=== PATIENT | male | born 1985 | race Caucasian/White ===

== ENCOUNTER 2016-05-08 15:44 | Inpatient (IN) ==
--- NOTE | 2016-05-08 16:01 | Emergency Department Note ---
Disposition Clinical Impression: Suicidal ideation Depression Qualifiers: Depression Type: unspecified Qualified Code(s): F32.9 - Major depressive disorder, single episode, unspecified Disposition: Admitted As Inpatient Condition: Fair General Adult HPI - General Chief complaint: ED Psychiatric Symptoms Stated complaint: SI Time Seen by Provider: 05/08/16 15:56 Source: patient Limitations: no limitations Nursing Notes Reviewed: Yes Vital Signs Reviewed: Yes - History of Present Illness HPI Narrative: 31-year-old male with long-standing history of depression and suicidal ideation. He is currently being treated but has had approximately 1-2 weeks of worsening depression. He states that he does want to kill himself right now and he does have a plan of taking pills. He denies a current suicide attempt. He denies taking excess of his medications. He also denies having any new symptoms they can think of aside from depression. He denies fever, headache, abdominal pain, nausea, vomiting, difficulty urinating. Denies any new rashes. He was just seen one or 2 days ago at [facility] but was discharged. His significant other who is in the room with him said that he was not honest with them but he now would like help Pain Scale: 0 Consistency: constant Improves with: nothing Worsens with: nothing Associated symptoms: Reports: denies other symptoms Treatments Prior to Arrival: none - Related Data Allergies Allergy/AdvReac Type Severity Reaction Status Date / Time Sulfa (Sulfonamide AdvReac Rash Verified 05/08/16 15:46 Antibiotics) All systems ED: reviewed and negative except as stated. Constitutional: Denies: fever Eyes: Denies: vision change ENT ED: Denies: throat pain Cardiovascular: Denies: chest pain Respiratory: Denies: cough Gastrointestinal: Denies: abdominal pain Genitourinary: Denies: dysuria Musculoskeletal: Denies: back pain Integumentary: Denies: rash Neurological: Denies: headache Endocrine: Reports: fatigue Past Medical History - Past Medical History Medical history: Reports: asthma Psychiatric history: Reports: anxiety, depression, prior suicide attempt, previous psychiatric hospitalization - Social History Smoking Status: Current every day smoker Smokeless Tobacco Status: No Alcohol use: Reports: recent Drug use: Reports: none Physical Exam - General Limitations: no limitations General appearance: alert - Head Head exam: atraumatic - Eye Eye exam: Present: normal appearance, PERRL, EOMI - ENT ENT exam: normal exam, normal oropharynx - Neck Neck exam: Present: normal inspection - Chest Chest inspection: Present: normal inspection - Respiratory Respiratory exam: Present: normal lung sounds bilaterally. Absent: respiratory distress - Cardiovascular Cardiovascular exam: Present: regular rate, normal rhythm - Abdominal Exam Abdominal exam: Present: soft, Non-Tender - Extremities Exam Extremities exam: Present: normal inspection - Neurological Exam Neurological exam: Present: alert, oriented X3 - Psychiatric Psychiatric exam: Present: depressed, suicidal ideation - Skin Skin exam: Present: warm, dry Course Course Narrative: We will do medical screening labs with psychiatric consultation. - Reevaluation(s) Reevaluation #1: WBC count is mildly elevated. No sign of infection on physical exam. Medically clear for 1A Reevaluation #2: Accepted by 1A for admission Vital Signs Temperature 98.4 F 05/08/16 15:47 Pulse Rate 123 05/08/16 15:47 Respiratory Rate 16 05/08/16 15:47 Blood Pressure 151/111 05/08/16 15:47 O2 Sat by Pulse Oximetry 96 05/08/16 15:47 Temperature 98.4 F 05/08/16 15:47 Pulse Rate 123 05/08/16 15:47 Respiratory Rate 16 05/08/16 15:47 Blood Pressure 151/111 05/08/16 15:47 O2 Sat by Pulse Oximetry 96 05/08/16 15:47 Oxygen Delivery Oxygen Delivery Room Air Medical Decision Making - Medical Records Medical records reviewed: Yes I reviewed the patient's medical records. - Lab Data Lab results reviewed: Yes I reviewed the patient's lab results. Result diagrams: 05/08/16 16:20 05/08/16 16:20 Lab Results 05/08/16 05/08/16 05/08/16 Range/Units 16:20 16:20 16:30 WBC 11.5 H (4.3-11.1) K/mcL RBC 5.42 (4.19-5.50) M/mcL Hgb 17.0 H (12.9-16.9) g/dL Hct 47.9 (37.5-50.1) % MCV 88.4 (83.0-100.0) fL MCH 31.4 (28.0-33.3) pg MCHC 35.5 (31.6-35.5) g/dL RDW 12.2 (11.5-14.5) % Plt Count 267 (140-400) K/mcL MPV 8.4 L (9.4-12.4) fL Immature Gran % 0.3 (0-4) % Seg Neutrophils % 79.4 % Lymphocytes % 13.3 % Monocytes % 6.2 % Eosinophils % 0.4 % Basophils % 0.4 % Neutrophils # 9.1 H (1.6-8.9) K/mcL Lymphocytes # 1.5 (0.6-4.6) K/mcL Monocytes # 0.7 (0.0-1.3) K/mcL Eosinophils # 0.1 (0.0-0.6) K/mcL Basophils # 0.1 (0.0-0.2) K/mcL Sodium 140 (136-145) mEq/L Potassium 4.1 (3.5-4.5) mEq/L Chloride 103 (98-109) mEq/L Carbon Dioxide 24 (19-29) mEq/L BUN 9 (8-26) mg/dL Creatinine 0.81 (0.72-1.25) mg/dL Est GFR ( Amer) > 60 (> 60) Est GFR (Non-Af Amer) > 60 (> 60) BUN/Creatinine Ratio 11 (6-26) Glucose 103 H (70-99) mg/dL Calculated Osmolality 289 (280-300) Calcium 10.0 (8.6-10.8) mg/dL TSH 1.093 (0.350-4.840) mcIU/mL Urine Color Yellow (Yellow) Urine Clarity Clear (Clear) Urine pH 7.0 (5.0-8.0) pH Units Ur Specific [place] 1.009 L (1.010-1.025) Urine Protein Negative (Neg-Trace) mg/dL Urine Glucose (UA) Normal (Normal) mg/dL Urine Ketones Negative (Negative) mg/dL Urine Blood Negative (Negative) Urine Nitrite Negative (Negative) Urine Bilirubin Negative (Negative) Urine Urobilinogen Normal (Normal) mg/dL Ur Leukocyte Esterase Negative (Negative) Salicylates < 5.0 L (15-30) mg/dL Urine Opiates Screen (Ayevgs=697) ng/mL Acetaminophen < 1.0 L (10-30) mcg/mL Ur Barbiturates Screen (Ucmmyo=985) ng/mL Ur Phencyclidine Scrn (Cutoff=25) ng/mL Ur Amphetamines Screen (Belhsj=6508) ng/mL U Benzodiazepines Scrn (Dxjump=687) ng/mL Urine Cocaine Screen (Cutoff= 300) ng/mL U Marijuana (THC) Screen (Cutoff = 50) ng/mL Ethyl Alcohol < 10 (0-10) mg/dL 05/08/16 Range/Units 16:30 WBC (4.3-11.1) K/mcL RBC (4.19-5.50) M/mcL Hgb (12.9-16.9) g/dL Hct (37.5-50.1) % MCV (83.0-100.0) fL MCH (28.0-33.3) pg MCHC (31.6-35.5) g/dL RDW (11.5-14.5) % Plt Count (140-400) K/mcL MPV (9.4-12.4) fL Immature Gran % (0-4) % Seg Neutrophils % % Lymphocytes % % Monocytes % % Eosinophils % % Basophils % % Neutrophils # (1.6-8.9) K/mcL Lymphocytes # (0.6-4.6) K/mcL Monocytes # (0.0-1.3) K/mcL Eosinophils # (0.0-0.6) K/mcL Basophils # (0.0-0.2) K/mcL Sodium (136-145) mEq/L Potassium (3.5-4.5) mEq/L Chloride (98-109) mEq/L Carbon Dioxide (19-29) mEq/L BUN (8-26) mg/dL Creatinine (0.72-1.25) mg/dL Est GFR ( Amer) (> 60) Est GFR (Non-Af Amer) (> 60) BUN/Creatinine Ratio (6-26) Glucose (70-99) mg/dL Calculated Osmolality (280-300) Calcium (8.6-10.8) mg/dL TSH (0.350-4.840) mcIU/mL Urine Color (Yellow) Urine Clarity (Clear) Urine pH (5.0-8.0) pH Units Ur Specific [place] (1.010-1.025) Urine Protein (Neg-Trace) mg/dL Urine Glucose (UA) (Normal) mg/dL Urine Ketones (Negative) mg/dL Urine Blood (Negative) Urine Nitrite (Negative) Urine Bilirubin (Negative) Urine Urobilinogen (Normal) mg/dL Ur Leukocyte Esterase (Negative) Salicylates (15-30) mg/dL Urine Opiates Screen Negative (Utdcdm=661) ng/mL Acetaminophen (10-30) mcg/mL Ur Barbiturates Screen Negative (Durdik=890) ng/mL Ur Phencyclidine Scrn Negative (Cutoff=25) ng/mL Ur Amphetamines Screen Negative (Tjrmwl=2429) ng/mL U Benzodiazepines Scrn Negative (Duyhqh=962) ng/mL Urine Cocaine Screen Negative (Cutoff= 300) ng/mL U Marijuana (THC) Screen Negative (Cutoff = 50) ng/mL Ethyl Alcohol (0-10) mg/dL
[2016-05-08 16:30] LABS: Basophils # 0.1 K/mcL (0.0-0.2); Basophils % 0.4 %; Eosinophils # 0.1 K/mcL (0.0-0.6); Eosinophils % 0.4 %; Hematocrit 47.9 % (37.5-50.1); Immature Granulocytes % 0.3 % (0-4); Lymphocytes # 1.5 K/mcL (0.6-4.6); Lymphocytes % 13.3 %; Mean Corpuscular HGB Conc 35.5 g/dL (31.6-35.5); Mean Corpuscular Hemoglobin 31.4 pg (28.0-33.3); Mean Corpuscular Volume 88.4 fL (83.0-100.0); Mean Platelet Volume 8.4 fL (9.4-12.4); Monocytes # 0.7 K/mcL (0.0-1.3); Monocytes % 6.2 %; Neutrophils # 9.1 K/mcL (1.6-8.9); Platelet Count 267 K/mcL (140-400); Red Blood Count 5.42 M/mcL (4.19-5.50); Red Cell Distribution Width 12.2 % (11.5-14.5); Segmented Neutrophils % 79.4 %
[2016-05-08 16:45] LABS: Acetaminophen < 1.0 mcg/mL (10-30); BUN/Creatinine Ratio 11 (6-26); Blood Urea Nitrogen 9 mg/dL (8-26); Carbon Dioxide 24 mEq/L (19-29); Chloride 103 mEq/L (98-109); Ethanol < 10 mg/dL (0-10); Glucose 103 mg/dL (70-99); Osmolality,Calculated 289 (280-300); Potassium 4.1 mEq/L (3.5-4.5); Salicylate < 5.0 mg/dL (15-30); Sodium 140 mEq/L (136-145); eGFR For African Americans > 60 (> 60); eGFR For Non-African Americans > 60 (> 60)
[2016-05-08 16:47] LABS: Bilirubin,Urine Negative (Negative); Blood,Urine Negative (Negative); Clarity,Urine Clear (Clear); Color,Urine Yellow (Yellow); Glucose,Urine (UA) Normal (Normal); Ketones,Urine Negative (Negative); Leukocyte Esterase,Urine Negative (Negative); Nitrite,Urine Negative (Negative); Protein,Urine Negative (Neg-Trace); Specific Gravity,Urine 1.009 (1.010-1.025); Urobilinogen,Urine Normal (Normal)
[2016-05-08 16:51] LABS: Amphetamine Screen,Urine Negative ng/mL (Cutoff=1000); Barbiturate Screen,Urine Negative ng/mL (Cutoff=200); Benzodiazepines Screen,Urine Negative ng/mL (Cutoff=200); Cannabinoid Screen,Urine Negative ng/mL (Cutoff = 50); Cocaine Screen,Urine Negative ng/mL (Cutoff= 300); Opiate Screen,Urine Negative ng/mL (Cutoff=300); Phencyclidine Screen,Urine Negative ng/mL (Cutoff=25)
[2016-05-08 17:05] LABS: Thyroid Stimulating Hormone 1.093 mcIU/mL (0.350-4.840)
--- NOTE | 2016-05-08 17:14 | Emergency Department Note ---
Disposition Clinical Impression: Suicidal ideation Depression Qualifiers: Depression Type: unspecified Qualified Code(s): F32.9 - Major depressive disorder, single episode, unspecified Disposition: Admitted As Inpatient Condition: Fair General Adult HPI - General Chief complaint: ED Psychiatric Symptoms Stated complaint: SI Time Seen by Provider: 05/08/16 15:56 Source: patient Limitations: no limitations - History of Present Illness Pain Scale: 0 Improves with: nothing Worsens with: nothing Associated symptoms: Reports: denies other symptoms Treatments Prior to Arrival: none - Related Data Allergies Allergy/AdvReac Type Severity Reaction Status Date / Time Sulfa (Sulfonamide AdvReac Rash Verified 05/08/16 15:46 Antibiotics) Constitutional: Denies: fever Eyes: Denies: vision change ENT ED: Denies: throat pain Cardiovascular: Denies: chest pain Respiratory: Denies: cough Gastrointestinal: Denies: abdominal pain Genitourinary: Denies: dysuria Musculoskeletal: Denies: back pain Integumentary: Denies: rash Neurological: Denies: headache Endocrine: Reports: fatigue Past Medical History - Past Medical History Medical history: Reports: asthma Psychiatric history: Reports: anxiety, depression, prior suicide attempt, previous psychiatric hospitalization - Social History Smoking Status: Current every day smoker Smokeless Tobacco Status: No Alcohol use: Reports: recent Drug use: Reports: none Physical Exam - General Limitations: no limitations General appearance: alert Course - Reevaluation(s) Reevaluation #1: I saw the patient with the resident, Dr. Rogel. Patient presents with depression and suicidal ideations. He denied any medical complaints. Medical screening examination and labs are negative. The patient is medically cleared. We have already called psychiatry and they will be coming to evaluate the patient. He has been calm and cooperative. Time: 17:13 Vital Signs Temperature 98.4 F 05/08/16 15:47 Pulse Rate 123 05/08/16 15:47 Respiratory Rate 16 05/08/16 15:47 Blood Pressure 151/111 05/08/16 15:47 O2 Sat by Pulse Oximetry 96 05/08/16 15:47 Temperature 97.5 F L 05/08/16 15:56 Pulse Rate 81 05/08/16 15:56 Respiratory Rate 0 05/08/16 18:35 Blood Pressure 0/0 05/08/16 18:35 O2 Sat by Pulse Oximetry 96 05/08/16 15:47 Oxygen Delivery Oxygen Delivery Room Air Medical Decision Making - Lab Data Result diagrams: 05/08/16 16:20 05/08/16 16:20 Lab Results 05/08/16 05/08/16 05/08/16 Range/Units 16:20 16:20 16:30 WBC 11.5 H (4.3-11.1) K/mcL RBC 5.42 (4.19-5.50) M/mcL Hgb 17.0 H (12.9-16.9) g/dL Hct 47.9 (37.5-50.1) % MCV 88.4 (83.0-100.0) fL MCH 31.4 (28.0-33.3) pg MCHC 35.5 (31.6-35.5) g/dL RDW 12.2 (11.5-14.5) % Plt Count 267 (140-400) K/mcL MPV 8.4 L (9.4-12.4) fL Immature Gran % 0.3 (0-4) % Seg Neutrophils % 79.4 % Lymphocytes % 13.3 % Monocytes % 6.2 % Eosinophils % 0.4 % Basophils % 0.4 % Neutrophils # 9.1 H (1.6-8.9) K/mcL Lymphocytes # 1.5 (0.6-4.6) K/mcL Monocytes # 0.7 (0.0-1.3) K/mcL Eosinophils # 0.1 (0.0-0.6) K/mcL Basophils # 0.1 (0.0-0.2) K/mcL Sodium 140 (136-145) mEq/L Potassium 4.1 (3.5-4.5) mEq/L Chloride 103 (98-109) mEq/L Carbon Dioxide 24 (19-29) mEq/L BUN 9 (8-26) mg/dL Creatinine 0.81 (0.72-1.25) mg/dL Est GFR ( Amer) > 60 (> 60) Est GFR (Non-Af Amer) > 60 (> 60) BUN/Creatinine Ratio 11 (6-26) Glucose 103 H (70-99) mg/dL Calculated Osmolality 289 (280-300) Calcium 10.0 (8.6-10.8) mg/dL TSH 1.093 (0.350-4.840) mcIU/mL Urine Color Yellow (Yellow) Urine Clarity Clear (Clear) Urine pH 7.0 (5.0-8.0) pH Units Ur Specific [place] 1.009 L (1.010-1.025) Urine Protein Negative (Neg-Trace) mg/dL Urine Glucose (UA) Normal (Normal) mg/dL Urine Ketones Negative (Negative) mg/dL Urine Blood Negative (Negative) Urine Nitrite Negative (Negative) Urine Bilirubin Negative (Negative) Urine Urobilinogen Normal (Normal) mg/dL Ur Leukocyte Esterase Negative (Negative) Salicylates < 5.0 L (15-30) mg/dL Urine Opiates Screen (Qnejgn=954) ng/mL Acetaminophen < 1.0 L (10-30) mcg/mL Ur Barbiturates Screen (Txoefp=539) ng/mL Ur Phencyclidine Scrn (Cutoff=25) ng/mL Ur Amphetamines Screen (Fkmvcm=6867) ng/mL U Benzodiazepines Scrn (Izylsg=867) ng/mL Urine Cocaine Screen (Cutoff= 300) ng/mL U Marijuana (THC) Screen (Cutoff = 50) ng/mL Ethyl Alcohol < 10 (0-10) mg/dL 05/08/16 Range/Units 16:30 WBC (4.3-11.1) K/mcL RBC (4.19-5.50) M/mcL Hgb (12.9-16.9) g/dL Hct (37.5-50.1) % MCV (83.0-100.0) fL MCH (28.0-33.3) pg MCHC (31.6-35.5) g/dL RDW (11.5-14.5) % Plt Count (140-400) K/mcL MPV (9.4-12.4) fL Immature Gran % (0-4) % Seg Neutrophils % % Lymphocytes % % Monocytes % % Eosinophils % % Basophils % % Neutrophils # (1.6-8.9) K/mcL Lymphocytes # (0.6-4.6) K/mcL Monocytes # (0.0-1.3) K/mcL Eosinophils # (0.0-0.6) K/mcL Basophils # (0.0-0.2) K/mcL Sodium (136-145) mEq/L Potassium (3.5-4.5) mEq/L Chloride (98-109) mEq/L Carbon Dioxide (19-29) mEq/L BUN (8-26) mg/dL Creatinine (0.72-1.25) mg/dL Est GFR ( Amer) (> 60) Est GFR (Non-Af Amer) (> 60) BUN/Creatinine Ratio (6-26) Glucose (70-99) mg/dL Calculated Osmolality (280-300) Calcium (8.6-10.8) mg/dL TSH (0.350-4.840) mcIU/mL Urine Color (Yellow) Urine Clarity (Clear) Urine pH (5.0-8.0) pH Units Ur Specific [place] (1.010-1.025) Urine Protein (Neg-Trace) mg/dL Urine Glucose (UA) (Normal) mg/dL Urine Ketones (Negative) mg/dL Urine Blood (Negative) Urine Nitrite (Negative) Urine Bilirubin (Negative) Urine Urobilinogen (Normal) mg/dL Ur Leukocyte Esterase (Negative) Salicylates (15-30) mg/dL Urine Opiates Screen Negative (Qhhdtd=601) ng/mL Acetaminophen (10-30) mcg/mL Ur Barbiturates Screen Negative (Nunkqt=001) ng/mL Ur Phencyclidine Scrn Negative (Cutoff=25) ng/mL Ur Amphetamines Screen Negative (Iorxqk=6886) ng/mL U Benzodiazepines Scrn Negative (Rilgzu=518) ng/mL Urine Cocaine Screen Negative (Cutoff= 300) ng/mL U Marijuana (THC) Screen Negative (Cutoff = 50) ng/mL Ethyl Alcohol (0-10) mg/dL Attestation Statement - Attestation Attestation: I, Dr. Fitzpatrick, examined this patient [id number] and my medical decision- making was reviewed with Dr. Rogel, Resident Physician. I agree with the documented findings, disposition and treatment plan as described except to the extent set forth below. Please see my progress notes for details.
[2016-05-08] MEDS ORDERED: Haloperidol Lactate 5 MG/ML VIAL IM PRN (18:19)
[2016-05-08] MEDS ORDERED: *HR* LORazepam 1 MG TABLET PO PRN (18:19)
[2016-05-08] MEDS ORDERED: MOM Conc 10 ML UD.LIQ PO PRN (18:19)
[2016-05-08] MEDS ORDERED: Mag Hydrox/Al Hydrox/Simeth 30 ML UDC PO PRN (18:19)
[2016-05-08] MEDS ORDERED: *HR* LORazepam 2 MG/ML VIAL IM PRN (18:19)
[2016-05-08] MEDS: Nicotine 21 MG PATCH.TD24 TD SCH (18:53)
[2016-05-08] MEDS: traZODone 50 MG TABLET PO PRN (20:39)
[2016-05-09] MEDS: Nicotine 21 MG PATCH.TD24 TD SCH (08:06)
[2016-05-09] MEDS: Acetaminophen 325 MG TABLET PO PRN (08:55)
--- NOTE | 2016-05-09 15:42 | Psychiatry History & Physical ---
Date of Encounter: 05/09/16 Time of Encounter: 14:30 History of Present Illness Patient Stated Chief Complaint: "I'm pretty rough." Medicare Admission Attestation: For traditional Medicare patients the provided hospital inpatient services are reasonable and necessary and in the case of services not specified as inpatient -only under 42 CFR 419.22 (n), that they are appropriately provided as inpatient services in accordance 42 CFR 412.3. For Critical Access Hospital the patient may reasonably be expected to be discharged or transferred to a hospital within 96 hours after admission to the Critical Access Hospital. Admitted From: Emergency Dept Plans for Post Hospital Care: Home History of Present Illness: Mr. Reyes is a 31 year old male was admitted to after having thoughts of suicide with a plan. He tells me that things been "pretty rough" the last couple weeks. He states that he started feeling more depressed several weeks ago and it progressed to having feelings and suicidal thoughts. His plan was to "overdose on something". He denies any precipitating event that caused the depression to get worse. He states overall, he has always been fairly stable on his antidepressant medications. He has been sober off of alcohol for about 9 months. He states this past Sunday, in his depression, he went to [place] and started drinking again with friends there at a bar and blacked out. He was taken to the ER, allowed to sober up he was discharged. The next night he started filling suicidal again. He endorses feeling lonely and sad, helpless and hopeless, decreased appetite having lost 5 pounds in the last month, having no desire to do anything and decreased libido. He tells me that he slept well on the unit last night feeling safe. He denies ever having periods of high energy or doing anything impulsive. He denies auditory or visual hallucinations. He has been consistent taking Zoloft which he receives from [facility] in [place]. He states the dose is not been increased or changed for long time secondary to him being stable. He denies any other substance abuse at this time. He states he get this past September and things are good in his marriage. His is very supportive. 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 Past Med Surg Social Fam HX - Past Medical History Medical history: asthma - Past Psychiatric History Psychiatric history: Reports: anxiety, depression, previous psychiatric hospitalization Past psychiatric history details: He sees a psychiatrist at [facility] in [place]. The same psychiatrist his mother's goes to. Family psychiatric history: Yes (Mother and sister; depression and anxiety) Family History of Suicide: None - Social History Smoking Status: Current every day smoker Packs per day: 1 x 10 years Smokeless Tobacco Status: No Alcohol use: heavy (in the past. Sober for 9 months. Goes to ), recent Drug use: none Occupational status: employed Current living situation: Home - Independent Activity Level: Independent ambulation Recent Out of Country Travel Within the Last 8 Weeks: No Exposure or Possible Exposure to Illness During Travel: No Medications & Allergies Allergies Sulfa (Sulfonamide Antibiotics) Adverse Reaction (Verified 05/08/16 15:46) Rash Review of Systems Psychiatric: Reports: depression, anxiety, abnormal sleep pattern, suicidal ideation, change in appetite, anhedonia, change in libido, difficulty concentrating, hopelessness, irritability Mental Status Exam Patient orientation: Yes Person, Yes Time, Yes Place, Yes Circumstance Level of alertness: Alert, Follows commands Patient appearance: Well Groomed Behavior: cooperative Psychomotor activity: Normal Eye contact: Maintains Eye Contact Mood description: Depressed Affect description: flat, dysphoric Speech pattern: Normal rate, Normal rhythm, Normal tone, Appropriate Speech volume: Normal Thought process: Logical, Linear Thought content: Yes Suicidal ideation Attention span: Capable of Focused Attention Memory description: Grossly Intact Patient reliability: Reliable Historian Intelligence estimate: Average Judgment: Fair Insight: Partial Results - Vital Signs Vital signs: Temp Pulse Resp BP Pulse Ox 97.5 F L 81 0 0/0 96 05/08/16 15:56 05/08/16 15:56 05/08/16 18:35 05/08/16 18:35 05/08/16 15:47 - Labs Labs: Laboratory Last Values WBC 11.5 K/mcL (4.3-11.1) H 05/08/16 16:20 RBC 5.42 M/mcL (4.19-5.50) 05/08/16 16:20 Hgb 17.0 g/dL (12.9-16.9) H 05/08/16 16:20 Hct 47.9 % (37.5-50.1) 05/08/16 16:20 MCV 88.4 fL (83.0-100.0) 05/08/16 16:20 MCH 31.4 pg (28.0-33.3) 05/08/16 16:20 MCHC 35.5 g/dL (31.6-35.5) 05/08/16 16:20 RDW 12.2 % (11.5-14.5) 05/08/16 16:20 Plt Count 267 K/mcL (140-400) 05/08/16 16:20 MPV 8.4 fL (9.4-12.4) L 05/08/16 16:20 Immature Gran % 0.3 % (0-4) 05/08/16 16:20 Seg Neutrophils % 79.4 % 05/08/16 16:20 Lymphocytes % 13.3 % 05/08/16 16:20 Monocytes % 6.2 % 05/08/16 16:20 Eosinophils % 0.4 % 05/08/16 16:20 Basophils % 0.4 % 05/08/16 16:20 Neutrophils # 9.1 K/mcL (1.6-8.9) H 05/08/16 16:20 Lymphocytes # 1.5 K/mcL (0.6-4.6) 05/08/16 16:20 Monocytes # 0.7 K/mcL (0.0-1.3) 05/08/16 16:20 Eosinophils # 0.1 K/mcL (0.0-0.6) 05/08/16 16:20 Basophils # 0.1 K/mcL (0.0-0.2) 05/08/16 16:20 Sodium 140 mEq/L (136-145) 05/08/16 16:20 Potassium 4.1 mEq/L (3.5-4.5) 05/08/16 16:20 Chloride 103 mEq/L (98-109) 05/08/16 16:20 Carbon Dioxide 24 mEq/L (19-29) 05/08/16 16:20 BUN 9 mg/dL (8-26) 05/08/16 16:20 Creatinine 0.81 mg/dL (0.72-1.25) 05/08/16 16:20 Est GFR ( Amer) > 60 (> 60) 05/08/16 16:20 Est GFR (Non-Af Amer) > 60 (> 60) 05/08/16 16:20 BUN/Creatinine Ratio 11 (6-26) 05/08/16 16:20 Glucose 103 mg/dL (70-99) H 05/08/16 16:20 Calculated Osmolality 289 (280-300) 05/08/16 16:20 Calcium 10.0 mg/dL (8.6-10.8) 05/08/16 16:20 TSH 1.093 mcIU/mL (0.350-4.840) 05/08/16 16:20 Urine Color Yellow (Yellow) 05/08/16 16:30 Urine Clarity Clear (Clear) 05/08/16 16:30 Urine pH 7.0 pH Units (5.0-8.0) 05/08/16 16:30 Ur Specific [place] 1.009 (1.010-1.025) L 05/08/16 16:30 Urine Protein Negative mg/dL (Neg-Trace) 05/08/16 16:30 Urine Glucose (UA) Normal mg/dL (Normal) 05/08/16 16:30 Urine Ketones Negative mg/dL (Negative) 05/08/16 16:30 Urine Blood Negative (Negative) 05/08/16 16:30 Urine Nitrite Negative (Negative) 05/08/16 16:30 Urine Bilirubin Negative (Negative) 05/08/16 16:30 Urine Urobilinogen Normal mg/dL (Normal) 05/08/16 16:30 Ur Leukocyte Esterase Negative (Negative) 05/08/16 16:30 Salicylates < 5.0 mg/dL (15-30) L 05/08/16 16:20 Urine Opiates Screen Negative ng/mL (Fgigit=284) 05/08/16 16:30 Acetaminophen < 1.0 mcg/mL (10-30) L 05/08/16 16:20 Ur Barbiturates Screen Negative ng/mL (Eqajlq=116) 05/08/16 16:30 Ur Phencyclidine Scrn Negative ng/mL (Cutoff=25) 05/08/16 16:30 Ur Amphetamines Screen Negative ng/mL (Syijjo=1959) 05/08/16 16:30 U Benzodiazepines Scrn Negative ng/mL (Hvnfla=816) 05/08/16 16:30 Urine Cocaine Screen Negative ng/mL (Cutoff= 300) 05/08/16 16:30 U Marijuana (THC) Screen Negative ng/mL (Cutoff = 50) 05/08/16 16:30 Ethyl Alcohol < 10 mg/dL (0-10) 05/08/16 16:20 Assessment and Plan (1) Depression Current visit: Yes Status: Acute Plan: Admit inpatient for safety and stabilization, Close observation, Suicide Precautions per unit protocol, Encourage participation in unit milieu, Monitor sleep, Monitor appetite, Family/Supportive other meeting Risks, benefits, side effects, alternatives discussed w/pt: Yes (Increase in his Zoloft to 150mg po qD) Patient agreeable to treatment: Yes Plans for Post Hospital Care: Home Estimated Length of Stay (Days): 7 Qualifiers: Depression Type: major depressive disorder Major depression recurrence: recurrent Active/Remission status: currently active Major depression episode severity: severe Psychotic features: without psychotic features Qualified Code(s): F33.2 - Major depressive disorder, recurrent severe without psychotic features (2) Alcohol abuse Current visit: Yes Status: Chronic Patient agreeable to treatment: Yes
[2016-05-09] MEDS: traZODone 50 MG TABLET PO PRN (20:55)
[2016-05-10] MEDS: Nicotine 21 MG PATCH.TD24 TD SCH (08:27)
[2016-05-10] MEDS: Acetaminophen 325 MG TABLET PO PRN (11:19)
--- NOTE | 2016-05-10 15:34 | Psychiatry Progress Note ---
Date of Encounter: 05/10/16 Time of Encounter: 15:00 Subjective Interval history: Patient tells me today that he is feeling "a lot better." He took the increased dose of Zoloft and noticed that he did not feel right at first, physically noticed the dose changed. But that went away. He slept last evening for about 10-11 hours and feels so much better today. He did use some Trazodone to help fall asleep. 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 He is not sure what changed, but is feeling more future oriented and more relaxed. He is attending group and rec therapy. Ate his meals without issue. He tells me his family is coming to visit [facility]. He has no other complaints. Review of Systems Psychiatric: Reports: depression, anxiety, abnormal sleep pattern, suicidal ideation, change in appetite, anhedonia, change in libido, difficulty concentrating, hopelessness, irritability Objective: Exam Patient orientation: Yes Person, Yes Time, Yes Place, Yes Circumstance Level of alertness: Alert, Follows commands Patient appearance: Well Groomed Behavior: cooperative Psychomotor activity: Normal Eye contact: Maintains Eye Contact Mood description: Depressed (less today) Affect description: congruent with mood Speech pattern: Normal rate, Normal rhythm, Normal tone, Appropriate Speech volume: Normal Thought process: Logical, Linear Thought content: Yes Intact Judgment: Fair Insight: Partial Results - Vital Signs Vital Signs: Temp Pulse Resp BP Pulse Ox 99.8 F H 77 16 130/82 96 05/10/16 08:35 05/10/16 08:35 05/10/16 08:35 05/10/16 08:35 05/08/16 15:47 Assessment and Plan (1) Depression Current visit: Yes Status: Acute Risks, benefits, side effects, alternatives discussed w/pt: Yes (Increase in his Zoloft to 150mg po qD) Patient agreeable to treatment: Yes Qualifiers: Depression Type: major depressive disorder Major depression recurrence: recurrent Active/Remission status: currently active Major depression episode severity: severe Psychotic features: without psychotic features Qualified Code(s): F33.2 - Major depressive disorder, recurrent severe without psychotic features (2) Alcohol abuse Current visit: Yes Status: Chronic Patient agreeable to treatment: Yes Consult Discharge Plan - Plan Referrals: Suraj Rodriguez [Non-Partnered Physician] - (The above appointment is with Dr. Rodriguez.)
[2016-05-10] MEDS: traZODone 50 MG TABLET PO PRN (20:56)
[2016-05-11] MEDS: Nicotine 21 MG PATCH.TD24 TD SCH (08:35)
--- NOTE | 2016-05-11 10:53 | Psychiatry Progress Note ---
Date of Encounter: 05/11/16 Time of Encounter: 10:35 Subjective Interval history: Patient tells me today "I am a little tired". He states that he slept fine last night, but that he feels slow in his thoughts and "a little fuzzy". He states he has low physical energy too and is feeling just a little off today. He tells me he recalls feeling this way previously when his Zoloft dose was increased from 50 mg to 100 mg. He does not believe he is ready to discharge today. He is unsure if the change in mood, which was rather quickly, was placebo effect. He states that he knows he reacts to medications, often times quickly, but wants to make sure he is stable before being discharged. He denies any suicidal/homicidal ideation, auditory/visual hallucinations. He has a goal set the probably be discharged tomorrow; he just wants to make sure he is stable throughout today. Review of Systems Psychiatric: Reports: depression, change in appetite, anhedonia, change in libido, difficulty concentrating Objective: Exam Patient orientation: Yes Person, Yes Time, Yes Place, Yes Circumstance Level of alertness: Alert, Follows commands Patient appearance: Well Groomed Behavior: cooperative Psychomotor activity: Slowed Eye contact: Maintains Eye Contact Mood description: Depressed (less today) Affect description: congruent with mood Speech pattern: Normal rate, Normal rhythm, Normal tone, Appropriate Speech volume: Normal Thought process: Logical, Linear, Goal Oriented Thought content: Yes Intact Judgment: Fair Insight: Partial Results - Vital Signs Vital Signs: Temp Pulse Resp BP Pulse Ox 98.4 F 76 16 117/75 96 05/11/16 08:31 05/11/16 08:31 05/11/16 08:31 05/11/16 08:31 05/08/16 15:47 Assessment and Plan (1) Depression Current visit: Yes Status: Acute Risks, benefits, side effects, alternatives discussed w/pt: Yes (Increase in his Zoloft to 150mg po qD) Patient agreeable to treatment: Yes Qualifiers: Depression Type: major depressive disorder Major depression recurrence: recurrent Active/Remission status: currently active Major depression episode severity: severe Psychotic features: without psychotic features Qualified Code(s): F33.2 - Major depressive disorder, recurrent severe without psychotic features (2) Alcohol abuse Current visit: Yes Status: Chronic Patient agreeable to treatment: Yes Consult Discharge Plan - Plan [facility] - 05/25/16 4:00 pm (The above appointment is with Reyna Juarez. When you come to your first appointment, you will have an orientation to the agency and you will meet with a counselor. Please bring the following with you to your first visit to the clinic: 1) proof of household income (two consecutive pay stubs, social security award letter, bank statement, statement letter from [facility], child support statement, IRS 1040 or W2 form, or a statement from the person who financially supports you stating they help provide for your basic needs), 2) proof of residency (drivers license , a piece of mail showing your address, a statement from person you live with verifying you live at their address), 3) your social security number, and 4) your insurance card (if you have commercial insurance you must call to obtain a prior authorization number before you arrive to your first appointment). If you do not bring these items, you will not be seen.) Suraj Rodriguez [Non-Partnered Physician] - (The above appointment is with Dr. Rodriguez.)
[2016-05-12] MEDS: Nicotine 21 MG PATCH.TD24 TD SCH (08:19)
[2016-05-12] MEDS ORDERED: Nicotine 14 MG PATCH.TD24 TD SCH (09:00)
[2016-05-12 09:27] VITALS: BP 122/79
--- NOTE | 2016-05-12 14:26 | Discharge Summary ---
Date of Encounter: 05/12/16 Time of Encounter: 14:05 Diagnosis - Discharge Diagnosis (1) Depression Status: Acute Qualifiers: Depression Type: major depressive disorder Major depression recurrence: recurrent Active/Remission status: currently active Major depression episode severity: severe Psychotic features: without psychotic features Qualified Code(s): F33.2 - Major depressive disorder, recurrent severe without psychotic features (2) Alcohol abuse Status: Chronic Medications - Discharge Medications Sertraline [Zoloft] 150 mg PO DAILY tablet 05/12/16 [Rx] Allergies Sulfa (Sulfonamide Antibiotics) Adverse Reaction (Verified 05/08/16 15:46) Rash Provider Date of admission: 05/08/16 18:17 Primary care physician: PCP NO Discharging clinician: Yemi Goodwin Assessment and Plan - Patient/Caregiver Discharge Instructions Activity: resume usual activities as tolerated Diet: regular diet - Follow up Plan Follow up with: Tod Murillo [Outside] - 05/25/16 4:00 pm (The above appointment is with Reyna Juarez. When you come to your first appointment, you will have an orientation to the agency and you will meet with a counselor. Please bring the following with you to your first visit to the clinic: 1) proof of household income (two consecutive pay stubs, social security award letter, bank statement, statement letter from [facility], child support statement, IRS 1040 or W2 form, or a statement from the person who financially supports you stating they help provide for your basic needs), 2) proof of residency (drivers license , a piece of mail showing your address, a statement from person you live with verifying you live at their address), 3) your social security number, and 4) your insurance card (if you have commercial insurance you must call to obtain a prior authorization number before you arrive to your first appointment). If you do not bring these items, you will not be seen.) Suraj Rodriguez [Non-Partnered Physician] - 05/16/16 12:15 pm (The above appointment is with Dr. Rodriguez.) Functional capacity at discharge: independent ambulation Overall status at discharge: Stable Disposition: Home, Self-Care Hospital Course Hospital course: Mr. Reyes is a 31 year old male who tells me today "I am feeling pretty good". He states he was not feeling physically welll yesterday to last night. He thinks that is due to the nicotine patch. He decreased the dose of nicotine patch and feels that he is doing better. Overall he states his mood is stable. He denies being depressed at this time. He states that he is thinking more clearly, has a better appetite, has more energy and has improved attention and concentration. Sleep is good; he felt well rested when he woke up this morning. He denies any suicidal ideation or plans, he denies any homicidal ideation plans. He denies any auditory/visual hallucinations. He states that he is ready to be discharged. He has his current medication of Zoloft 100 mg at home. He was increased dose by 50 mg while he was here. I am calling the [facility] on [facility] and ordering Zoloft 50 mg #7 take 1 po daily with the 100 mg tablet he already has at home. He understands these orders. This is being done because he pays [employer]illy for his medications and this will save him money. He has a follow-up appointment for medication refills in a week with a psychiatrist. Time spent discussing smoking cessation with patient: 3 to 10 minutes Does patient wish to continue nicotine replacement upon disc: No - Time Spent with Patient Total time spent providing and/or coordinating discharge services: 25 min Less than 30 minutes Quality - Multiple Antipsychotics Patient discharged on 2 or more antipsychotic medications: No Procedures - Procedures Procedures: Medication Management, Crisis Stabilization, Supportive Therapy, Psychoeducational Therapy Mental Status Exam - Mental Status Exam Patient orientation: Yes Person, Yes Time, Yes Place, Yes Circumstance Level of alertness: Alert, Follows commands Patient appearance: Appropriate, Well Groomed Behavior: calm, cooperative Psychomotor activity: Normal Eye contact: Maintains Eye Contact Mood description: Depressed (mild/tired) Affect description: congruent with mood Speech pattern: Normal rate, Normal rhythm, Normal tone, Appropriate Speech Volume: Normal Thought process: Intact, Logical, Linear, Goal Oriented Thought Content: Yes Intact Judgment: Good Insight: Full
== END 2016-05-12 16:10 | disposition home or self-care (01) | DRG 885 ==
LOC: EMEROO 15:44 → 1ANU 18:17
PROVIDERS: ADMIT Psychiatry & Neurology Psychiatry; ATTEND Psychiatry & Neurology Psychiatry